=== PATIENT | female | born 1995 | race Caucasian/White ===

== ENCOUNTER 2020-07-02 10:23 | Outpatient (REF) | payer SELFPAY ==
[2020-07-03 15:43] LABS: COVID-19 RT-PCR UVMMC Result Negative (Negative)
== END 2020-07-02 10:24 | disposition home or self-care (01) ==
LOC: NCHCN 10:23
PROVIDERS: PCP Pediatrics; Visit Provider Internal Medicine
DX: Z20.822 Contact with and (suspected) exposure to COVID-19 (principal)
CPT/HCPCS: U0003

== ENCOUNTER 2023-07-11 05:25 | Outpatient (CLI) | payer MEDICAID, SELFPAY ==
[2023-07-11 10:16] LABS: Panorama Kit Sent via Fed Ex
[2023-07-11 10:25] LABS: Abs Immature Grans 0.04 10^3/uL (0.0-0.06); Absolute Basophil Count 0.01 10^3/uL (0.0-0.2); Absolute Eosinophil Count 0.21 10^3/uL (0.0-0.7); Absolute Lymphocyte Count 1.54 10^3/uL (1.2-3.4); Absolute Monocyte Count 0.54 10^3/uL (0.1-0.8); Absolute Neutrophil Count 4.09 10^3/uL (1.2-6.7); Basophils % 0.2; Eosinophils % 3.3; HCT 40.3 % (36.0-46.0); HGB 13.3 g/dL (11.2-15.7); Immature Grans % 0.6; MCV 88 fL (80-95); MPV 9.8 fL (8.0-11.0); Monocytes % 8.4; Neutrophils % 63.5; Platelet Count 259 10^3/uL (130-400); RBC 4.59 10^6/uL (3.93-5.22); RDW 13.4 % (11.7-14.6); WBC 6.43 10^3/uL (4.4-10.8)
[2023-07-11 10:35] LABS: Glucose,1 Hr (Glucola) 102 mg/dL (80-140)
[2023-07-11 18:12] LABS: Hepatitis B Surface Ag Negative (Negative)
[2023-07-11 18:40] LABS: HIV-1/2 Ag & Ab Screen Negative (Negative)
[2023-07-11 18:42] LABS: Hepatitis C Ab w Rflx HCV PCR Negative (Negative)
[2023-07-12 10:31] LABS: Varicella IgG Antibody Positive (See Note)
[2023-07-12 10:44] LABS: Rubella IgG Ab (UVM) Positive (See Note)
[2023-07-13 12:12] LABS: Syphilis IgG w/Reflex Nonreactive (Nonreactive)
[2023-07-28 02:47] LABS: Result Summary NEGATIVE; Specimen WB Whole Blood
== END 2023-07-11 05:26 | disposition home or self-care (01) ==
LOC: LBO 05:25
PROVIDERS: Visit Provider Advanced Practice Midwife
DX: Z34.91 Encounter for supervision of normal pregnancy, unspecified, first trimester (principal)
CPT/HCPCS: 36415; 81220; 81222; 82950; 86787; 86803; 86850; 86900; 86901; 87340; 87389; 85025; 86762; 86780

== ENCOUNTER 2023-07-11 10:21 | Outpatient (REF) | payer MEDICAID, SELFPAY ==
[2023-07-11 12:24] LABS: *AMPHETAMINES SCREEN URINE Negative (Negative); *BARBITURATES SCREEN URINE Negative (Negative); *BENZODIAZEPINES SCREEN URINE Negative (Negative); Cannabinoids THC Negative (Negative); Cocaine Screen,Urine Negative (Negative); METHADONE URINE SCREEN Negative (Negative); OPIATES URINE SCREEN Negative (Negative); Tricyclic Antidepressants Negative (Negative)
[2023-07-12 11:33] LABS: Fentanyl Scr w/Rfx Confirm Negative ng/mL (<1)
[2023-07-12 16:50] LABS: Chlamydia Result Negative (Negative); GC Result Negative (Negative)
[2023-07-15 10:08] LABS: Buprenorphine Negative ng/mL (Cutoff: 5.0); Norbuprenorphine Negative ng/mL (Cutoff: 2.5)
== END 2023-07-11 10:22 | disposition home or self-care (01) ==
LOC: LBN 10:21
PROVIDERS: Visit Provider Advanced Practice Midwife
DX: Z34.91 Encounter for supervision of normal pregnancy, unspecified, first trimester (principal)
CPT/HCPCS: 80307; 80348; 87491; 87591; 87086

== ENCOUNTER → 2023-09-06 04:21 | Outpatient (CLI) | payer MEDICAID, SELFPAY ==
--- NOTE | 2023-09-06 06:30 | DI.US_ITS ---
Exam(s) US OB 2-3 TRIMESTER W MOD EXAM: US OB 2-3 TRIMESTER W MOD CLINICAL HISTORY: anatomy survey,z34.90. TECHNIQUE: Transabdominal obstetrical ultrasound was performed. COMPARISON: No exams were available for comparison FINDINGS: There is a single viable intrauterine gestation with cardiac activity identified-153 bpm. Amniotic fluid: There is a normal amount of amniotic fluid. Placental location: The placenta is anterior grade 1,with no evidence of placenta previa.Distance fro m the tip of the placenta to the internal cervical os is 4.5 cm. ANATOMY: A 3 vessel umbilical cord is seen. Satisfactory imaging the heart not able to be obtained todayRight and left ventricular outflow tracts were not able to be imaged. There are no obvious abnormalities of the spinal column evident. There is no obvious abnormal ity of the anterior abdominal wall. stomach and urinary bladder are identified and there is no evidence of hydronephrosis. No abnormalities of the upper lip region are identified. No evidence of choroid plexus cysts i n the brain. Dating parameters place this at approximately 19 weeks and 4 days gestational age. BPD measures 19 weeks and 4 days HC measures 19 weeks and 5 days AC measures 19 weeks and 5 days FL measures weeks and 3 days Estimated weight is 301 gm-0 pounds, 11 ounces Fetus is at the 46th percentile on the Hadlock scale. IMPRESSION:: Single viable intrauterine gestation which is approximately 19 weeks and 4 days gestati onal age, implying an INDIGO of 01/27/2024. There are no obvious anomalies evident on today's study. However, please note that were not abl e to obtain satisfactory imaging of the heart on today's study and requires rescheduling 4 additional imaging of the heart to obtained four-chamber cardiac view as well as left and rig ht ventricular outflow tract views. The placenta is anterior with no evidence of placenta previa. There is a normal amount of amniotic fluid. DATA REPOSITORY:
== END ==
PROVIDERS: Visit Provider Advanced Practice Midwife
DX: Z34.92 Encounter for supervision of normal pregnancy, unspecified, second trimester (principal); Z3A.19 19 weeks gestation of pregnancy
CPT/HCPCS: 76805

== ENCOUNTER → 2023-09-13 04:19 | Outpatient (CLI) | payer MEDICAID, SELFPAY ==
--- NOTE | 2023-09-13 | DI.US_ITS ---
Exam(s) US OB F/U FACIAL/LVOT/RVOT EXAM: US OB F/U FACIAL/LVOT/RVOT CLINICAL HISTORY: F/U HEART,PLACENTA,CORD INSERTS FROM SURVEY. COMPARISON: US US OB 2-3 TRIMESTER W MOD from 09/06/2023 TECHNIQUE: Transabdominal obstetrical ultrasound performed. FINDINGS: Sonographic images demonstrate a single intrauterine gestation in transverse position, head tow genoveva the maternal left. heart rate motion is Dopplered at: 145 bpm. Four-chamber view of the heart, LVOT and RVOT were better seen on today's exam no abnormalities ident ified. Placenta: Anterior, grade 0.. Cord insertion 3.7 cm from the placental margin. cord insertion appears normal. Amniotic fluid index: Amount of fluid is within normal limits. IMPRESSION: Images of the heart are adequate on today's examination to complete the survey. DATA REPOSITORY:
== END ==
PROVIDERS: Visit Provider Advanced Practice Midwife
DX: Z34.02 Encounter for supervision of normal first pregnancy, second trimester (principal); Z3A.19 19 weeks gestation of pregnancy
CPT/HCPCS: 76815

== ENCOUNTER 2023-11-03 01:03 | Outpatient (CLI) | payer MEDICAID, SELFPAY ==
[2023-11-03 11:10] LABS: HCT 37.9 % (36.0-46.0); HGB 12.8 g/dL (11.2-15.7); MCH 29.8 pg (27.0-33.0); MCHC 33.8 % (32.0-36.0); MCV 88 fL (80-95); MPV 9.5 fL (8.0-11.0); Platelet Count 249 10^3/uL (130-400); RBC 4.29 10^6/uL (3.93-5.22); RDW 13.9 % (11.7-14.6); RDW-SD 44.8 fL; WBC 7.21 10^3/uL (4.4-10.8)
[2023-11-03 11:26] LABS: Glucose,1 Hr (Glucola) 121 mg/dL (80-140)
== END 2023-11-03 01:04 | disposition home or self-care (01) ==
LOC: LBO 01:03
PROVIDERS: Visit Provider Advanced Practice Midwife
DX: Z34.90 Encounter for supervision of normal pregnancy, unspecified, unspecified trimester (principal)
CPT/HCPCS: 36415; 82950; 85027

== ENCOUNTER 2023-11-03 13:53 | Outpatient (REF) | payer MEDICAID, SELFPAY ==
[2023-11-03 14:15] LABS: *AMPHETAMINES SCREEN URINE Negative (Negative); *BARBITURATES SCREEN URINE Negative (Negative); *BENZODIAZEPINES SCREEN URINE Negative (Negative); Cannabinoids THC Negative (Negative); Cocaine Screen,Urine Negative (Negative); METHADONE URINE SCREEN Negative (Negative); OPIATES URINE SCREEN Negative (Negative)
[2023-11-03 14:16] LABS: Tricyclic Antidepressants Negative (Negative)
[2023-11-04 12:25] LABS: Fentanyl Scr w/Rfx Confirm Negative ng/mL (<1)
[2023-11-09 08:04] LABS: Buprenorphine Negative ng/mL (Cutoff: 5.0); Norbuprenorphine Negative ng/mL (Cutoff: 2.5)
== END 2023-11-03 13:54 | disposition home or self-care (01) ==
LOC: LBN 13:53
PROVIDERS: Visit Provider Advanced Practice Midwife
DX: Z34.92 Encounter for supervision of normal pregnancy, unspecified, second trimester (principal)
CPT/HCPCS: 80307; 80348

== ENCOUNTER 2024-01-02 16:15 | Outpatient (REF) | payer MEDICAID, SELFPAY | END 2024-01-02 16:16 | disposition home or self-care (01) | LOC: LBN 16:15 | PROVIDERS: Visit Provider Advanced Practice Midwife | DX: Z34.93 Encounter for supervision of normal pregnancy, unspecified, third trimester (principal); Z3A.36 36 weeks gestation of pregnancy | CPT/HCPCS: 87081 ==

== ENCOUNTER 2024-01-17 13:06 | Outpatient (CLI) | payer MEDICAID, SELFPAY ==
[2024-01-17 13:13] VITALS: BP 130/74; PULSE 118; TEMP 36.4
[2024-01-17 13:20] VITALS: BP 130/74; PULSE 118
--- NOTE | 2024-01-17 14:42 | W.OBNST ---
Date of service: 01/17/24 Time of Service: 14:42 NST Evaluation Reason for NST Reasons for Nonstress Test: OTHER, SEE COMMENT Reason for NST Other: Decreased heart rate Gestational Age Gestational Age in Weeks and Days: 38 Weeks and 4Days Test and Monitor Explained Test/Monitor Explained: Test Explained and Monitor Explained Vital Signs Blood Pressure: 130/74 Pulse: 118 Temperature: 97.5 F Urine Results Urine Protein: Negative Urine Ketones: Negative Urine Glucose: Negative Urine Blood: Negative NST Information Date on Monitor: 01/17/24 Time on Monitor: 13:16 Date off Monitor: 01/17/24 Time off Monitor: 13:40 Total Time on Monitor: 24 NST Interventions: None NST Evaluation Patient States Movement: Present FHR Baseline: 130 Variability: Moderate 6-25 bpm Accelerations: 15x15 Decelerations: None NST Results: Reactive Note Ultrasound Done: N/A. NST Note Note: FHR 110-130 in office. NST reactive. RTO 1 week NST Reviewed and Verified by: Leigh Calderon
[2024-01-17 14:43] VITALS: BP 130/74; PULSE 118; TEMP 36.4
== END 2024-01-17 13:40 ==
LOC: BCD 13:07 → OBS 13:12
PROVIDERS: Visit Provider Advanced Practice Midwife
DX: O36.8310 Maternal care for abnormalities of the fetal heart rate or rhythm, first trimester, not applicable or unspecified (principal); Z3A.38 38 weeks gestation of pregnancy
CPT/HCPCS: 59025

== ENCOUNTER 2024-02-03 07:35 | Outpatient (CLI) | payer MEDICAID, SELFPAY ==
[2024-02-03 10:16] VITALS: TEMP 36.8
--- NOTE | 2024-02-03 13:15 | W.OBNST ---
Date of service: 02/03/24 Time of Service: 13:15 NST Evaluation Reason for NST Reasons for Nonstress Test: POSTDATES Gestational Age Gestational Age in Weeks and Days: 41 Weeks and 0Days Test and Monitor Explained Test/Monitor Explained: Test Explained Vital Signs Temperature: 98.2 F NST Information Date on Monitor: 02/03/24 Time on Monitor: 10:05 Date off Monitor: 02/03/24 Time off Monitor: 12:20 Total Time on Monitor: 135 NST Interventions: None NST Evaluation Patient States Movement: Present FHR Baseline: 140 Variability: Moderate 6-25 bpm Accelerations: 15x15 Decelerations: None NST Results: Reactive Note Ultrasound Done: DAYAN Total DAYAN: 9.8 Other Pertinent Findings: Heart Rate (140), Presentation (cephalic, ROP) and Placental Location (anterior) Coding for DAYAN w/NST: Completed Exam. NST Note Note: Pt scheduled for 41 wk IOL on 02/05 Cvx 1/60%, anterior, firm, vtx -4 intact membranes NST Reviewed and Verified by: Zeina Anders
[2024-02-03 13:17] VITALS: TEMP 36.8
== END 2024-02-03 12:30 | disposition other institution (70) ==
LOC: BCD 07:35 → OBS 10:14
PROVIDERS: Visit Provider Advanced Practice Midwife
DX: O48.0 Post-term pregnancy (principal); Z3A.41 41 weeks gestation of pregnancy
CPT/HCPCS: 59025; 76815

== ENCOUNTER 2024-02-06 08:06 | Inpatient (IN) | payer MEDICAID, SELFPAY ==
[2024-02-06 08:44] LABS: HCT 38.7 % (36.0-46.0); HGB 13.1 g/dL (11.2-15.7); MCH 29.8 pg (27.0-33.0); MCHC 33.9 % (32.0-36.0); MCV 88 fL (80-95); MPV 9.6 fL (8.0-11.0); Platelet Count 256 10^3/uL (130-400); RBC 4.39 10^6/uL (3.93-5.22); RDW 14.4 % (11.7-14.6); RDW-SD 45.7 fL
[2024-02-06 08:47] VITALS: BP 136/80; PULSE 108; RESP 16; TEMP 36.5; O2SAT 99
[2024-02-06] MEDS: miSOPROStol 25 MCG TAB 50 MCG PO ×3 (09:15→20:13)
--- NOTE | 2024-02-06 09:47 | HPE_ITS ---
Date of service: 02/06/24 Time of Service: 09:00 Assessment and Plan Assessment and plan (1) 41 weeks gestation of : Status: Acute (2) resulting from in-vitro fertilization: Status: Acute (3) Encounter for induction of labor: Status: Acute Assessment and plan: A: 28 yo @ 41+3 wks, IOL for post dates & IVF DAYAN @ 41 wks = 10, Sherman score is 5 Category 1 tracing, moderate risks for SD and PPH due IOL process & primiparity Valtrex taken for HSV prophylaxis, no lesions or sx P: Risks and benefits of IOL reviewed, will begin with cervical ripening Admit to center, comfort measures as pt desires Dr. Garza available for consultation OB-HPI Labor/Delivery History of Present Illness Reason for Visit: Postdates induction Chief Complaint: Scheduled Induction of Labor Indication for Induction: Post Date. INDIGO Calculator Estimated Delivery Date Method Current WG Current Estimate 01/27/24 Ultrasound #1 41w 3d History of Present Expected Delivery Route/Plan - CNM FOB/ - Vicente Graves (has a 6 yo son) BG Hopes for low intervention but open to what she may need support=FOB and pt's mom and/or [id number] ([place] [facility] GBS negative Specific Issues/Plan 1. IVF , finished progesterone injections @ 10 wks 2. Low dose ASA for nulliparity, BMI & IVF 3. BMI 31, early glucola = 102; 28 wks = 121 4. 5P screen+ (partner MAT for opiate use, stopped 2021): UDS initial (neg) & 28 wks neg 5. Hx genital HSV, plan Valtrex prophylaxis from 36 wks- ordered 12/18 6. Hx childhood PCN-hives, pt desires allergy testing, [facility] [place] referral 11/20 6a. Had skin testing [place] [facility] [place] had no reaction, low risk for PCN reaction 7. cfDNA low risk x5 female, CF carrier negative 8. Received RSV vaccine 01/02 Assessment: History Reviewed & Current Informed Consent Informed Consent: Induction of Labor and Risk,Benefits,Alternatives Discussed Review of Systems Narrative: ROS completed and found to be noncontributory other than HPI PFSH All Active Problems (Updated 02/06/24 @ 17:10 by Zeina Anders) Encounter for induction of labor (Acute) 41 weeks gestation of (Acute) Family history of hypertension (Acute) both of pt's parents and her brother Penicillin-induced allergic rash (Acute) In childhood, no recent exposure History of herpes genitalis (Acute) (Acute) resulting from in-vitro fertilization (Acute) fresh embryo transfer 05/11/23 Medical History (Updated 02/06/24 @ 17:10 by Zeina Anders) Infertility, female Recurrent loss, currently History of hysterosalpingogram 03/2023 Breakthrough bleeding (09/15/15) Family History Mother Vulvar cancer Father Heart disease Grandfather Diabetes MGF Social History Smoking/Tobacco Use Status: Never Smoking risk assessment performed?: Yes Alcohol Intake: never Housing: house Do you feel safe at home: Yes Do you feel safe in your relationship?: Yes History History 4 Para 0 Hx # Term Pregnancies 0 Multiple births 0 Hx # Pregnancies 0 Ectopic pregnancies 0 AB induced 1 Hx Number of Living Children 0 AB spontaneous 2 Meds Allergies and Home Medications Allergies Allergy/AdvReac Type Severity Reaction Status Date / Time Penicillins Allergy Unknown Other (See Verified 01/30/24 11:37 Comment) Home Medications ?Medication ?Instructions ?Recorded ?Confirmed ?Type aspirin 81 mg tablet,delayed 81 mg PO DAILY #90 tabs 07/11/23 02/06/24 Rx release vitamin#30 30 mg iron-10 1 cap PO DAILY 07/11/23 02/06/24 History mg iron-folic acid 1 mg-omg3 capsule valacyclovir 1 gram tablet 1,000 mg PO DAILY #30 tabs 12/19/23 02/06/24 Rx (Valtrex) Exam Physical Exam Vital signs: Temp Pulse Resp BP Pulse Ox 97.7 F 108 H 16 136/80 99 02/06/24 08:47 02/06/24 08:47 02/06/24 08:47 02/06/24 08:47 02/06/24 08:47 Vital Signs Reviewed: Yes Constitutional Constitutional: no acute distress, average body habitus and cooperative Detailed Labor and Delivery Exam Dilation: 1 Effacement (%): 60 station: -3 Position: ROP Cervix position: anterior Consistency: medium SHERMAN Score(Cervical Ripeness Score): 5 Amniotic Membrane Status: Intact Contraction Frequency(min): irregular Contraction Intensity: Mild Fetus A Heart Rate Baseline: 140 Monitor Accelerations: Present Monitor Decelerations: None Variability: Moderate (6-25 BPM) Categories: Category I Est. Weight: 8 lb 11.332 oz Est. Weight: 3950 gms HEENT Exam HEENT Exam: Normal Neck Exam Neck Exam: Normal Chest/Brest/Axilla Exam Chest Exam: Normal Breast Exam Breast Exam: Not Done Respiratory Exam Respiratory Exam: Normal Cardiovascular Exam Cardiovascular Exam: Normal Abdominal Exam Abdominal Exam: Normal (Gravid, nontender) Rectal Exam Rectal Exam: Normal Exam Exam: Normal Extremities Exam Extremities Exam: Normal Back/Spine/Pelvis Exam Back Exam: Normal Pelvis Adequate: Yes Skin Exam Skin Exam: Normal Neurological Exam Neurological Exam: Normal Psychiatric Exam Psychiatric Exam: Normal Results Results Group Beta Strep: Negative Blood Type: O+ Rubella Status: Immune Varicella Immunity: Immune Risk Assessment Risk for Shoulder Dystocia Historical/Initial OB: POSITIVE FOR: Pre- BMI>30; NEGATIVE FOR: Pelvic Abnormality, Previous Shoulder Dystocia or Previous Macrosomia 36 Weeks: NEGATIVE FOR: Current Gestational DM, EFW>4500gms or Maternal Weight Gain>40lbs 40 Weeks: NEGATIVE FOR: EFW> 4500 gms, Maternal Weight Gain >40lb or Post Dates Increased Risk?: No Delivery Plan @ 36wks: Delivery Plan @ 40 wks: Risk for Pre-Eclampsia Date Initiated/Initials: to start @ 12 wks, JK Yes, if one or more: NEGATIVE FOR: Hx Pre-E/Gest HTN, Chronic HTN, Multiple Gestation, Pre-gestational DM, Renal Disease, Systemic Lupus or APA Syndrome Yes, if 2 or more: POSITIVE FOR: Nulliparity and BMI>30; NEGATIVE FOR: Age>= 35 yrs, >10yr btwn pregnancies, ethinicty, Mother/Sister w/ Pre-E or Previous IUGR Risk for Post- Hemorrhage Initial: NEGATIVE FOR: Multiple Gestation, Previous PPH, Known Clotting Deficiency, Grand Multiparity or Anticoagulation 36 Weeks: NEGATIVE FOR: Anemia, hgb<10, Low platelets(thrombocytopenia), Gestational HTN or Pre-E, Polyhydraminios or EFW>4500gms 40 Weeks: NEGATIVE FOR: Anemia, hgb<10, Low platelets (thrombocytopenia), Gestation HTN or Pre-E, Polyhydraminios or EFW>4500gms At Risk?: No Counseled re: Active Management: Yes Risks Reviewed Risks Reviewed Upon Admission: Yes
[2024-02-06 11:18] VITALS: BP 134/65; PULSE 104
[2024-02-06 13:05] VITALS: BP 129/67; PULSE 88; RESP 16; TEMP 36.6
[2024-02-06 17:32] VITALS: BP 128/76; PULSE 98
[2024-02-06 19:04] VITALS: BP 133/75; PULSE 100; TEMP 36.7
--- NOTE | 2024-02-06 19:53 | W.PM.OBNL1 ---
Date of service: 02/06/24 Time of Service: 19:53 Informed Consent Informed Consent: Induction of Labor and Risk,Benefits,Alternatives Discussed Pelvic Exam Dilation: 1 Effacement (%): 70 station: -3 Position: ROP Cervix Position: anterior Consistency: medium BISHOPS Score(Cervical Ripeness Score): 5 Contractions Monitor Mode: External Contraction Frequency(min): 4-5 Contraction Duration(sec): 50-60 Intensity: Mild Fetus A Monitor: External (US) Heart Rate Baseline: 150 Variability: Moderate (6-25 BPM) Categories: Category I Accelerations: Prolonged (with movement) Decelerations: None Amniotic Membrane Status: Intact Assessment and Plan Assessment and plan (1) Encounter for induction of labor: Status: Acute Assessment and plan: A: IOL via cervical ripening, HD#1, s/p 2 doses of miso 50 mcg PO Category 1 tracing, Alvarez score of 5, latent phase P: Continue miso q 4 -6 hrs PO for 2 more doses Use oral route for hydration as pt is tolerating well Consider pitocin infusion in the morning if labor not active Objective Temp Pulse Resp BP Pulse Ox 97.9 F 100 H 16 133/75 99 02/06/24 13:05 02/06/24 19:04 02/06/24 13:05 02/06/24 19:04 02/06/24 08:47 Laboratory Results WBC 8.00 10^3/uL (4.4-10.8) 02/06/24 08:35 RBC 4.39 10^6/uL (3.93-5.22) 02/06/24 08:35 Hgb 13.1 g/dL (11.2-15.7) 02/06/24 08:35 Hct 38.7 % (36.0-46.0) 02/06/24 08:35 MCV 88 fL (80-95) 02/06/24 08:35 MCH 29.8 pg (27.0-33.0) 02/06/24 08:35 MCHC 33.9 % (32.0-36.0) 02/06/24 08:35 RDW 14.4 % (11.7-14.6) 02/06/24 08:35 Plt Count 256 10^3/uL (130-400) 02/06/24 08:35 MPV 9.6 fL (8.0-11.0) 02/06/24 08:35 ABO/Rh O Positive 02/06/24 08:35 Antibody Screen NEGATIVE 02/06/24 08:35 Vital Signs Reviewed: Yes Objective Narrative Objective Narrative: Pt appears comfortable, socializing and relaxed Vital signs stable, category 1 tracing all day Nursing held 1730 miso dose due to contractions q 3 minutes EFM reapplied at 1900, contx are 2-3 in 10 minutes, fetus very active with prolonged accels to 170 Nursing continuing to hold 3rd miso dose until baseline returns to 150's Pt resting LLP watching TV with Subjective Interval history since last seen: Pt has been feeling increased lower abd cramping most the afternoon and evening, baby very active since finishing dinner, tolerating PO intake well, relaxing with visitors and .
[2024-02-06 21:14] VITALS: BP 117/61; PULSE 72; TEMP 36.6
[2024-02-07] VITALS (32 sets, daily range): BP systolic 111–141; BP diastolic 55–83; PULSE 79–122; RESP 16–17; TEMP 36.4–36.9; O2SAT 93–100
[2024-02-07] MEDS: miSOPROStol 25 MCG TAB 50 MCG PO (00:33)
--- NOTE | 2024-02-07 11:20 | PGE_ITS ---
Date of service: 02/07/24 Time of Service: 11:20 Informed Consent Informed Consent: Induction of Labor, Risk,Benefits,Alternatives Discussed and Other (consents to clemente balloon) Pelvic Exam Dilation: 1.5 Effacement (%): 90 station: -3 Position: ROP Cervix Position: anterior Consistency: medium BISHOPS Score(Cervical Ripeness Score): 5 Contractions Monitor Mode: External Contraction Frequency(min): q3-4 Intensity: Mild/Moderate Fetus A Monitor: External (US) Heart Rate Baseline: 145 Variability: Moderate (6-25 BPM) Categories: Category I Accelerations: 15 X 15 Decelerations: None Amniotic Membrane Status: Intact Assessment and Plan Assessment and plan (1) Encounter for induction of labor: Status: Acute Assessment and plan: A: IOL for postdates/IVF, HD#2, completed total of 200 mcg miso over 24 hrs Mild contractions, category 1 tracing, early labor sx, P: Irina Kingsley consulting and introduced to pt and family Detailed discussion of next step options Pt consents to clemente balloon, inserted easily Will check for progress @ 1300, consider pitocin if indicated Pt declines regional anesthesia at this time, nitrous is adequate for now Encourage upright positioning & activity out of bed for rotation/descent Objective Objective Narrative Objective Narrative: Options for analgesia reviewed with pt Advised pt that though she feels tired and got little sleep last night, narcotic therapeutic rest is not indicated at this time Explained that IOL requires using techniques & meds for increasingly strong co ntractions to achieve labor and delivery Suggested to pt that she move around or rest, may use tub with clemente balloon in place When contractions are too strong to rest then regional anesthesia may be appropriate for her to be able to sleep/rest Subjective Interval history since last seen: Using nitrous to cope with uncomfortable contractions, pain in lower abd, has been using nitrous on and off since 0100 this morning after receiving 4th miso dose. Was able to sleep from 0400 to 0600, showered, tolerating PO intake well. Sister and FOB at bedside for support. Pt does not want regional anesthesia at this time, states the nitrous is adequate, wants to know what other pain management options are such as narcotic for therapeutic rest or fentanyl or nubain for later in labor. Declines pitocin augmentation at this time, consents to clemente balloon to push cervix to dilate as there has been minimal cervical change in response to misoprostel.
--- NOTE | 2024-02-07 15:54 | W.PM.OBNL1 ---
Date of service: 02/07/24 Time of Service: 15:54 Informed Consent Informed Consent: Augmentation of Labor and Risk,Benefits,Alternatives Discussed Pelvic Exam Dilation: 5 Effacement (%): 95 station: -2 Cervix Position: mid Consistency: soft Contractions Monitor Mode: External Contraction Frequency(min): q4-5 Intensity: Mild/Moderate Fetus A Monitor: External (US) Heart Rate Baseline: 140 Variability: Moderate (6-25 BPM) Categories: Category I Accelerations: 15 X 15 Decelerations: None Amniotic Membrane Status: Intact (forebag present during contraction) Assessment and Plan Assessment and plan (1) Encounter for induction of labor: Status: Acute Assessment and plan: A: Progress to 5/95%, forebag palpable during contraction Discussed pitocin augmentation vs AROM, pt prefers pitocin at this time P: Start pitocin augmentation Comfort measures as pt desires Dr. Arevalo notified of pt status Objective Vital Signs Reviewed: Yes Subjective Interval history since last seen: Pt requesting vaginal exam and consents to pitocin augmentation. Using nitrous to good effect.
[2024-02-07] MEDS: Oxytocin/Normal Saline 30 UNIT/500 ML BAG 2 UNITS IV (16:29)
[2024-02-07] MEDS: Lactated Ringers 1,000 ML 125 ML IV (16:29)
[2024-02-07] MEDS: Normal Saline Flush 10 ML SYR IVP (16:38)
--- NOTE | 2024-02-07 19:28 | W.PM.OBNL1 ---
Date of service: 02/07/24 Time of Service: 19:28 Informed Consent Informed Consent: Augmentation of Labor, Risk,Benefits,Alternatives Discussed and Other (Pt consents to AROM) Pelvic Exam Dilation: 5 Effacement (%): 95 station: -2 Position: ROP Cervix Position: anterior Consistency: soft Contractions Monitor Mode: External Contraction Frequency(min): q2-4 Intensity: Moderate Fetus A Monitor: External (US) Heart Rate Baseline: 145 Variability: Moderate (6-25 BPM) Categories: Category I Accelerations: Present Decelerations: None Amniotic Membrane Status: Ruptured Rupture Method: Artifical Amniotic Fluid: Meconium Amount: moderate Date of Membrane Rupture: 02/07/24 Time of Membrane Rupture: 19:25 Assessment and Plan Assessment and plan (1) Encounter for induction of labor: Status: Acute Assessment and plan: A: No cervical change since pitocin initiated 3 hrs ago, Pitocin @ 10 u/min, inadequate contraction pattern Category 1 tracing P: AROM consented to, easily performed, +meconium well diluted Comfort measures as pt desires Observe for labor progression, consider IUPC if not progressing by next exam Dr. Arevalo notified of pt status Objective Vital Signs Reviewed: Yes Objective Narrative Objective Narrative: Pt calm, coping well, using nitrous and changing positions often Subjective Interval history since last seen: Contractions feel stronger, no vomiting or bleeding, has continued to use nitrous and moving around the room, trying various positions to encourage optimal positioning, consents to AROM.
--- NOTE | 2024-02-07 22:14 | W.PM.OBNL1 ---
Date of service: 02/07/24 Time of Service: 22:14 Informed Consent Informed Consent: Augmentation of Labor, Regional Anesthesia, Risk,Benefits,Alternatives Discussed and Other (IUPC placement) Pelvic Exam Dilation: 5.5 Effacement (%): 100 station: -2 Position: ROP Consistency: soft Contractions Monitor Mode: Internal IUPC Fred units: 160 Fetus A Monitor: External (US) Heart Rate Baseline: 135 Variability: Moderate (6-25 BPM) Categories: Category I Accelerations: Present Decelerations: Early Amniotic Membrane Status: Ruptured Amniotic Fluid: Meconium Assessment and Plan Assessment and plan (1) Encounter for induction of labor: Status: Acute Assessment and plan: A: No cervical change since AROM 2 hrs earlier Pitocin at 14 u/min; pt consents to IUPC placement IUPC inserted atraumatically, pt requesting epidural anesthesia Category 1 tracing P: Dr. Irina Yates aware of pt status Titrate pitocin for adequate labor per MVU's Objective Vital Signs Reviewed: Yes Subjective Interval history since last seen: Contractions much more painful since AROM, soaked in tub for an hour, then H&K on floor mat using CUB and lunge position with left leg, agreed to exam to check for progress, consent given by pt for IUPC placement.
--- NOTE | 2024-02-07 23:14 | W.ANESNEU ---
Epidural/Spinal Catheter Date Performed: 02/07/24 Procedure Start: 10:45 Procedure Stop: 23:00 Requesting Provider: Zeina Anders Procedure Location: Obstetrics Reason Performed: Labor Epidural Standard Monitors Applied: Blood Pressure, SpO2 and See EMR for corresponding vital signs Patient Position: Sitting Sedation Given (Indicate Dose Given): No Sedation given Patient Mental Status: Awake Sterility: Hand Hygiene, Surgical Cap, Surgical Mask, Sterile Gloves, Sterile Drape/Sheet, Eye Protection and Chlorhexidine Procedure Location: L3-L4 Interspace Epidural Needle: Tuohy 18 Gauge Needle Length: 3.5 Inch Needle Approach: Midline Epidural Procedure: Skin Prepped, Sterile Drape Placed, 1% Lidocaine to skin and subcutaneous tissue with 25G needle, GAIL to Saline Used, Epidural Catheter Placed, Negative Heme, Negative CSF Flow and Tuohy Needle Removed Catheter Placed?: Catheter Placed Test Dose (Indicate Dose Given): 5ml 1.5% Lidocaine with 1:200K Epinephrine Given and Negative Test Dose Loss of Resistance Depth (cm): 7 Catheter depth at skin (cm): 13 Dressing: Tegaderm Applied, Mastisol Used and Dressing reinforced with Tape Epidural Provider Bolus (Indicate Dose Given): Total bolus dose given in 3-5 ml divided doses and Total Ropivacaine 0.1% with Fentanyl 2mcg/ml Given from pump. (ml) Dose:: 8ml Additives (Indicate Dose Given ): None Infusion Medication: Medication Infusion Began Medication Infusion: Ropivacaine 0.1% with Fentanyl 2mcg/ml Maintenance Infusion Rate (ml/hour): 10 PCEA Bolus Dose (ml): 5 Block Level: T7 Paresthesia: None Ultrasound: Used to helena site Number of Attempts (See previous attempts in note section): 1 Procedure Tolerated: No Complications and Patient tolerated well Procedure Outcome: Successful Performed By: Antonio Hamilton Supervised By: Yared Esparza
[2024-02-07] MEDS: FentaNYL/ROPIvacaine 2 mcg/ml and 0.1% 200 ML CADD Cassette EP (23:15)
[2024-02-08] VITALS (183 sets, daily range): BP systolic 90–129; BP diastolic 48–77; PULSE 79–152; RESP 16–18; TEMP 36.2–37; O2SAT 97–100; BMI 33.7
--- NOTE | 2024-02-08 00:41 | ANES.PREOP_ITS ---
General Info Date of Service Date Performed: 02/07/24 Height: 5 ft 6 in Weight: 94.801 kg Body Mass Index (BMI): 33.7 Meds Allergies and Home Medications Allergies Allergy/AdvReac Type Severity Reaction Status Date / Time Penicillins Allergy Unknown Other (See Verified 01/30/24 11:37 Comment) Home Medication ?Medication ?Instructions ?Recorded aspirin 81 mg tablet,delayed 81 mg PO DAILY #90 tabs 07/11/23 release vitamin#30 30 mg iron-10 1 cap PO DAILY 07/11/23 mg iron-folic acid 1 mg-omg3 capsule valacyclovir 1 gram tablet 1,000 mg PO DAILY #30 tabs 12/19/23 (Valtrex) Current Visit Medications: Current Medications Generic Name Dose Route Start Last Admin Trade Name Freq PRN Reason Stop Dose Admin Diphenhydramine HCl 25 mg 02/07/24 23:15 Diphenhydramine 50 Mg/Ml Vial IVP Q6H PRN PRN Persistent pruritis face/trunk Ephedrine Sulfate 5 mg 02/07/24 23:15 Ephedrine 50 Mg/Ml Vial IVP DIRECTED PRN Fentanyl/Ropivacaine 200 ml 02/07/24 22:30 Fentanyl/Ropivacaine 2 Mcg/Ml And 0.1% 200 Ml [place] EP DIRECTED PALOMO Fentanyl/Ropivacaine 200 ml 02/07/24 23:15 Fentanyl/Ropivacaine 2 Mcg/Ml And 0.1% 200 Ml [place] EP DIRECTED PALOMO Ringer's Solution 1,000 mls @ 125 mls/hr 02/07/24 10:30 02/07/24 16:29 IV 125 mls/hr INFUSION PALOMO Administration Oxytocin/Sodium Chloride 30 unit in 500 mls @ 2 mls/hr 02/07/24 10:30 02/07/24 18:26 Pitocin/Normal Saline IV 10 milliunits/min INFUSION PALOMO 10 mls/hr Titration Protocol 2 MILLIUNITS/MIN Naloxone HCl 2 mg/ Sodium 500 mls @ 11.85 mls/hr 02/07/24 23:15 Chloride IV INFUSION PRN pruritis 0.5 MCG/KG/HR Nalbuphine HCl 5 mg/ Sodium 50.5 mls @ 100 mls/hr 02/07/24 23:15 Chloride IVPB Q3H PRN PRN Pruritis IV Miscellaneous Supplies 1 each 02/07/24 10:30 Iv Access IV DIRECTED PALOMO Naloxone HCl 0 mg 02/07/24 23:15 Naloxone 0.4 Mg/Ml Vial IVP DIRECTED PRN Ondansetron HCl 4 mg 02/07/24 23:15 Ondansetron 4 Mg/2 Ml Vial IVP Q6H PRN PRN Nausea Sodium Chloride 0 ml 02/07/24 10:19 02/07/24 16:38 Normal Saline Flush 10 Ml Syr IVP 10 ml PRN PRN Administration Sodium Chloride 0 ml 02/07/24 20:00 Normal Saline Flush 10 Ml Syr IVP BID PALOMO Sodium Chloride 0 ml 02/07/24 10:19 Normal Saline 10 Ml Vial IJ DIRECTED PRN Terbutaline Sulfate 0.25 mg 02/06/24 08:05 Terbutaline 1 Mg/Ml Vial SC PRN PRN PFSH Active Problems Active Problems: Problem Status Onset Code Encounter for induction of labor Acute Z34.90 41 weeks gestation of Acute O48.0, Z3A.41 Penicillin-induced allergic rash Acute L27.0, T36.0X5A History of herpes genitalis Acute Z86.19 Acute Z34.90 resulting from in-vitro fertilization Acute O09.819 Medical History Medical History (Updated 02/08/24 @ 00:18 by Zeina Anders) Family history of hypertension both of pt's parents and her brother Infertility, female Recurrent loss, currently History of hysterosalpingogram 03/2023 Breakthrough bleeding (09/15/15) Tobacco Smoking/Tobacco Use Status: Never Alcohol Alcohol Intake: never Substance Use Substance use type: does not use Prental History History 2 4 Para 0 Hx # Term Pregnancies 0 Multiple births 0 Hx # Pregnancies 0 Ectopic pregnancies 0 AB induced 1 Hx Number of Living Children 0 AB spontaneous 2 Vital Signs and Lab Results Vital Signs Most Recent Vital Signs in EMR: Most Recent Vital Signs Temp Pulse Resp BP Pulse Ox 36.9 C 95 H 16 119/70 99 02/07/24 17:38 02/08/24 00:39 02/07/24 23:15 02/08/24 00:36 02/08/24 00:39 Lab Results 02/06/24 08:35 Blood Type / Crossmatch: 2 Antibody Screen NEGATIVE 02/06/24 Complete Blood Count: 2 White Blood Count 8.00 10^3/uL (4.4-10.8) 02/06/24 08:35 Red Blood Count 4.39 10^6/uL (3.93-5.22) 02/06/24 08:35 Hemoglobin 13.1 g/dL (11.2-15.7) 02/06/24 08:35 Hematocrit 38.7 % (36.0-46.0) 02/06/24 08:35 Platelet Count 256 10^3/uL (130-400) 02/06/24 08:35 Complete Metabolic Panel: 2 No Data to Display Liver Function Panel: 2 No Data to Display Coagulation Panel: 2 No Data to Display Cardiac Panel: 2 No Data to Display Arterial Blood Gas: 2 No Data to Display Venous Blood Gas: 2 No Data to Display Pancreas Panel: 2 No Data to Display Thyroid Panel: 2 No Data to Display Infectious Disease: 2 No Data to Display Blood Cultures: 2 No Data to Display Toxicology Panel: 2 No Data to Display Panel: 2 No Data to Display Anesthesia Assessment and Plan Anesthesia History Personal History: No History of Anesthesia Complications Family History: No Family History of Anesthesia Complications Exercise Tolerance Exercise Tolerance: Metabolic Equivalents>4 Pertinent Negatives Pertinent Negatives: No Symptoms of GERD, No Major Cardiovascular Symptoms or Complaints, No Major Pulmonary Symptoms or Complaints and No History of CVA/TIA Cardiac & Pulmonary Exam Cardiac Exam: Normal S1/S2 Heart Sounds Pulmonary Exam: Clear Bilateral Breath Sounds Implantable Cardiac Device Does patient have a Pacemaker or an ICD?: No Airway Exam Known Difficult Airway: No Mallampati Class: 2 Mouth Opening: Normal (> 3cm) Thyromental Distance: Greater than 3 cm Neck Range of Motion: Full ROM Neck Circumference: Normal Teeth Condition: Normal Dentition ASA Classification ASA Score: ASA 2 Emergency Case?: No NPO Status NPO Status: Full Stomach Status Status: Confirmed Anesthesia Plan Resuscitation Status: Full Code Anesthesia Technique: Labor Epidural Airway Planned: Natural Airway Monitors Used: Standard Monitors Preoperative Comments:: Miss Akers is a G4PO 41+ 3 weeks gestation requesting labor epidural significant PMH: recurrent loss Plan: labor epidural placement, appropriate monitors, adequate IV access
--- NOTE | 2024-02-08 02:02 | W.PM.OBNL1 ---
Date of service: 02/08/24 Time of Service: 01:10 Informed Consent Informed Consent: Augmentation of Labor, Regional Anesthesia, Risk,Benefits,Alternatives Discussed and Other (IUPC placement) Pelvic Exam Dilation: 8 (per RN exam) station: 0 (per RN exam) Contractions Monitor Mode: Internal IUPC Fred units: 190 Fetus A Monitor: External (US) Heart Rate Baseline: 150 Variability: Moderate (6-25 BPM) Categories: Category II CategoryII Plan of Care: Observation and Continuous Monitoring/Observation Decelerations: Early and Variable Recurrence: Recurrent (elisabeth 120) Amniotic Membrane Status: Ruptured Rupture Method: Artifical Amniotic Fluid: Meconium Assessment and Plan Assessment and plan (1) Encounter for induction of labor: Status: Acute Assessment and plan: A: IUPC indicates adequate contraction pattern with MVU's 180-220 Category 2 tracing d/t recurrent early/variable decels, variability remains moderate Progress into active labor and transition phase Effective epidural anesthesia P: Positioning to encourage rotation and descent Reassess progress as needed, close observation of FHT pattern Hold pitocin @ current level Encouraged to anticipate Objective Objective Narrative Objective Narrative: Pt reported feeling pelvic pressure, RN exam 8 cm, vtx @ 0 Category 2 tracing: recurrent periodic early or variable decels, starting after epidural induction Moderate variability has persisted, baseline stable at 145-150 Pitocin at 14 u/min Subjective Interval history since last seen: Epidural effective, pt comfortable, slept 2 hrs, feeling pelvic pressure.
[2024-02-08] MEDS: Lactated Ringers 1,000 ML 125 ML IV (07:22)
--- NOTE | 2024-02-08 07:27 | W.OBCONSULT ---
Date of service: 02/08/24 Time of Service: 07:28 Assessment and Plan Assessment and plan (1) Arrest of descent, delivered, current hospitalization: Status: Acute (2) Abnormal labor: Status: Acute Assessment and plan: Preop counseling: She was informed of the risks of procedure including risk of damage to bowel, bladder, and blood vessels during the time of the delivery. If any of those injuries were to occur she may require a repair at the time of surgery or blood transfusion or possible hysterectomy. I reviewed the risk of infection and the administration of IV Abx prior to the surgery. She wishes to proceed with delivery. History of Present Illness History of Present Illness Chief Complaint: arrest of descent Narrative: 28 yo female admitted 02/06/24 @ 41+3 wks, EGA for postdates IOL. course unremarkable. IVF . DAYAN @ 41 wks = 10, Alvarez score is 5. Valcyclovir for HSV prophylaxis. Received Misoprostol for cervical ripening. Oxytocin augmentation of labor followed by AROM @ ~1930 02/07/24 when cervix 5cm dilated. Light meconium noted. Pt received epidural at 8cm and Oxytocin titrated to appropriate [place] units. No cervical change overnight and pt advised to have pLTCS. FHR tracing Category 1 with exception of one episode of tachycardia that resolved with Oxytocin infusion temporarily decreased. Consults Consult date: 02/08/24 Requesting physician: Mary Arevalo Review of Systems All systems reviewed & are unremarkable except as noted in HPI and below PFSH All Active Problems (Updated 02/08/24 @ 07:45 by Mary Arevalo MD) Abnormal labor (Acute) Arrest of descent, delivered, current hospitalization (Acute) Encounter for induction of labor (Acute) 41 weeks gestation of (Acute) Penicillin-induced allergic rash (Acute) In childhood, no recent exposure History of herpes genitalis (Acute) (Acute) resulting from in-vitro fertilization (Acute) fresh embryo transfer 05/11/23 Medical History (Updated 02/08/24 @ 07:45 by Mary Arevalo MD) Family history of hypertension both of pt's parents and her brother Infertility, female Recurrent loss, currently History of hysterosalpingogram 03/2023 Breakthrough bleeding (09/15/15) Family History Mother Vulvar cancer Father Heart disease Grandfather Diabetes MGF Social History Smoking/Tobacco Use Status: Never Smoking risk assessment performed?: Yes Alcohol Intake: never Substance use type: does not use Housing: house Do you feel safe at home: Yes Do you feel safe in your relationship?: Yes History History 4 Para 0 Hx # Term Pregnancies 0 Multiple births 0 Hx # Pregnancies 0 Ectopic pregnancies 0 AB induced 1 Hx Number of Living Children 0 AB spontaneous 2 Exam Const General: no acute distress Nutritional Appearance: well nourished Orientation: alert, awake and oriented x3 Neck Neck: normal visual inspection Resp Effort & Inspection: normal respiratory effort Auscultation: clear to auscultation bilaterally Cardio Rate: regular rate Rhythm: regular rhythm GI Inspection: normal to inspection (gravid) General: other (SVE performed by CNM) Back/Spine/Pelvis Other: epidural catheter in place. Skin General skin exam: no rashes or lesions noted Extrem General: normal to inspection Psych Appearance: grossly normal Mental Status: mental status grossly normal and other (pt is weary and verbalizing that she wants to proceed with deliver) Speech and Movement: speech and movement normal Mood: other (pt is weary and verbalizing that she wants to proceed with deliver) Results Last Vital Signs Temp 98.6 F 02/08/24 07:24 Pulse 141 H 02/08/24 07:26 Resp 16 02/08/24 07:24 BP 107/55 L 02/08/24 07:24 Pulse Ox 97 02/08/24 07:24 Labs 02/06/24 08:35
[2024-02-08] MEDS: AZITHROMYCIN 500 MG in Normal Saline 250 ML 250 MG IVPB (07:37)
[2024-02-08] MEDS: ceFAZolin 2 GM/50 ML BAG IVPB (08:35)
[2024-02-08] MEDS: Bupivacaine 0.25% Pres-Free 30 ML VIAL (09:07)
--- NOTE | 2024-02-08 09:17 | PDOC.OPNB_ITS ---
Date of service: 02/08/24 Time of Service: 09:17 Operative Note Operative Note Delivery Method: Unscheduled STAT: No and Primary NTSV>37 Weeks: Yes DATE OF PROCEDURE: 02/08/24 PRE-OP DIAGNOSES: Abnormal labor progress, arrest of dilation, arrest of descent. POST-OP DIAGNOSES: same PROCEDURE: primary low transverse delivery SURGEON: Mary Arevalo Assisting Surgeon: Angelita Forman Anesthesia: spinal Estimated blood loss (mL): 300 Pathology: other (cord blood to lab) Complications: None Patient was transported to: floor Patient's condition: stable Indications: 28 yo female admitted at 41w3d EGA who underwent cervical ripening, Oxytocin augmentation of labor and acheived maximum cervical dilation of 8cm without descent of vertex from -1 station. Category 1 tracing during labor. Findings: Viable female in the vertex presentation. Meconium stained amniotic fluid. Apgars 8/9 . Weight: [id number] . Filmy serosal adhesions over both adnexa. Fallopian tubes and ovaries. normal in appearance. Serosal surface of uterine fundus has remnant of endometriosis adhesions. 2cm pedunculated fibroid on posterior surface of uterus. Procedure Description: Patient was taken to the operating room she is placed in the sitting position and the epidural catheter removed and spinal anesthesia was administered without difficulty. She was then placed in the dorsal supine position with a leftward tilt. SCDs were placed and a Mejias catheter to gravity drainage had been placed in Center. A vaginal prep with Betadine was performed and the patient was prepped and draped in the usual sterile fashion. Surgical timeout was performed. Preop antibiotics were administered. After a adequate level of anesthesia was achieved a Pfannenstiel skin incision was made approximately 2 cm superior to the pubic symphysis using a scalpel and the underlying subcutaneous tissue dissected using Bovie electrocautery to the level of the rectus fascia. The rectus fascia was then nicked in the midline and the fascial incision extended laterally using Bovie electrocautery. 2 Mariela clamps were applied to the superior rectus fascia and the rectus fascia was dissected off of the underlying rectus muscles using Bovie electrocautery and blunt technique. A similar technique was carried out on the inferior rectus fascia. Rectus muscles were then in the midline and the peritoneum entered bluntly. The peritoneal incision was extended laterally using blunt technique. The vesicle-uterine peritoneum over lower uterine segment was incised with curved Amaya scissors and the bladder flap created bluntly. Scalpel was used to incise the lower uterine segment in a transverse fashion. The uterine incision was extended bluntly and the amniotic sac was ruptured with meconium stained amniotic fluid noted. A single gloved hand was placed into the uterine cavity and the head was successfully delivered through the uterine incision followed by the trunk and extremities with the assistance of fundal pressure. The cord was doubly clamped and cut and the infant handed off to the waiting pediatric team. A segment of umbilical cord was obtained, cord blood was obtained and the placenta was extracted with a combination of fundal massage and gentle cord traction. The uterus was exteriorized cleared of all clots and debris and the uterine incision reapproximated with a running lock suture of 0 Vicryl followed by a second imbricating suture of 0 Vicryl. Uterine incision was noted be hemostatic. The uterus was returned to the abdomen and the paracolic gutters cleared of all clots and debris. Uterine incision and the along with the bladder flap and the abdominal wall were all inspected and noted to be hemostatic. The rectus fascia was reapproximated with a running suture of 0 Vicryl. space within the subcutaneous tissue closed with a running suture of 2-0 Vicryl. The skin incision was reapproximated with a subcuticular closure of 4-0 Vicryl. Steri strips and a Mepilex dressing was applied. The uterus was massaged for any remaining clots and debris. The patient was transported to recovery area in stable condition. All sponge, lap, and needle counts correct x2. [place] Gender: Female See Nursing Delivery Note for weight and Scores: Her parents intend to name her Nereyda You.
[2024-02-08] MEDS: Ketorolac 30 MG/ML VIAL IVP ×2 (11:29→19:53)
[2024-02-08] MEDS: Normal Saline Flush 10 ML SYR IVP ×2 (11:30→19:53)
[2024-02-09] VITALS (7 sets, daily range): BP systolic 98–116; BP diastolic 38–69; PULSE 70–88; RESP 16–18; TEMP 36.4–36.7; O2SAT 97–99
[2024-02-09] MEDS: Ketorolac 30 MG/ML VIAL IVP ×2 (02:22→08:23)
[2024-02-09 06:43] LABS: Abs Immature Grans 0.09 10^3/uL (0.0-0.06); Absolute Eosinophil Count 0.16 10^3/uL (0.0-0.7); Absolute Lymphocyte Count 2.21 10^3/uL (1.2-3.4); Absolute Monocyte Count 1.01 10^3/uL (0.1-0.8); Basophils % 0.2 %; Eosinophils % 1.2 %; HCT 29.8 % (36.0-46.0); HGB 9.8 g/dL (11.2-15.7); Immature Grans % 0.7 %; MCH 29.8 pg (27.0-33.0); MCHC 32.9 % (32.0-36.0); MCV 91 fL (80-95); MPV 9.8 fL (8.0-11.0); Monocytes % 7.8 %; Neutrophils % 73.1 %; Platelet Count 221 10^3/uL (130-400); RBC 3.29 10^6/uL (3.93-5.22); RDW 14.6 % (11.7-14.6); WBC 12.99 10^3/uL (4.4-10.8)
[2024-02-09 06:51] LABS: Absolute Basophil Count 0.03 10^3/uL (0.0-0.2)
[2024-02-09] MEDS: Normal Saline Flush 10 ML SYR IVP (08:24)
[2024-02-09] MEDS: Docusate Sodium 100 MG CAP PO (09:10)
--- NOTE | 2024-02-09 09:41 | W.PM.OBPNV1 ---
Date of service: 02/09/24 Time of Service: 09:47 Assessment and Plan Assessment and plan (1) resulting from in-vitro fertilization: Status: Acute (2) Arrest of descent, delivered, current hospitalization: Status: Acute (3) Abnormal labor: Status: Acute (4) Status post primary low transverse section: Status: Acute Assessment and plan: Patient's postoperative day #1 status post primary low-transverse section for failed induction, abnormal labor, macrosomia with a female . Doing well postoperatively. Hemoglobin stable. Vital signs are stable. Will ambulate, increase activity and diet today. Work on breast-feeding. Anticipate discharge in 24 to 48 hours based on maternal and Subjective Subjective Interval history: Patient seen and doing well this morning. Pain is well-controlled. She has been working on breast-feeding. All questions were answered today. [place] baby status: Doing well, Rooming in and Strong Bonding Observed Exam Physical Exam Vital signs: Temp Pulse Resp BP Pulse Ox 98.1 F 76 18 107/69 97 02/09/24 00:00 02/09/24 03:24 02/09/24 03:24 02/09/24 03:24 02/09/24 00:00 Vital Signs Reviewed: Yes Constitutional Constitutional: no acute distress HEENT Exam HEENT Exam: Normal Respiratory Exam Respiratory Exam: Normal Cardiovascular Exam Cardiovascular Exam: Normal Abdominal Exam Abdomen: Tender Comments: Incision is dressed Fundal Exam Fundus: Below Umbilicus and Firm Extremities Exam Extremity Exam: Edema; negative Calf Tenderness Neurological Exam Neurological Exam: Normal Psychiatric Exam Psychiatric Exam: Normal Results Hemoglobin/Hematocrit: Hgb 9.8 g/dL (11.2-15.7) L D 02/09/24 06:15 Hct 29.8 % (36.0-46.0) L 02/09/24 06:15 Abnormal Lab Findings: Abnormal Labs 02/09/24 06:15 WBC 12.99 H RBC 3.29 L Hgb 9.8 L D Hct 29.8 L Absolute Neutrophils 9.50 H Absolute Monocytes 1.01 H
--- NOTE | 2024-02-09 09:42 | W.ANESPOSTOP ---
Postoperative Evaluation Date, Time and Location Date Performed: 02/09/24 Time Performed: 09:30 Patient Location: Obstetrics Vital Signs Most Recent Imported Vital Signs: Most Recent Vital Signs Temp Pulse Resp BP Pulse Ox 36.7 C 76 18 107/69 97 02/09/24 00:00 02/09/24 03:24 02/09/24 03:24 02/09/24 03:24 02/09/24 00:00 Pain Score Most Recent Pain Score: Most Recent Pain Score Pain Level [Abdomen] 2 02/08/24 20:00 Pain Level 2 02/09/24 08:23 Assessment Mental Status: Awake (Alert & Oriented to Patient Baseline) Airway and Respiratory Function: Patent airway with normal (patient baseline) respiratory exam Cardiovascular Function: Hemodynamically Stable Hydration Status: Adequately Hydrated Nausea & Vomiting: No Nausea or Vomiting Pain: Pain is tolerable per patient Peripheral Nerve Block: Patient did not receive a nerve block Teaching Patient Teaching: Discussed Safe Use of Pain Medication Given Recent Anesthesia Postoperative Comments:: Miss Akers is evaluated s/p epidural, then intrathecal for . She is in good spirits nursing her daughter. She endorses overall satisfaction with both the epidural and intrathecal anesthetic. She denies N/V, pain is tolerable, she is tolerating PO nutrition, is hemodynamically stable, and respiratory status is to baseline, denies is in no acute distress. All questions were sought and answered.
[2024-02-09] MEDS: Acetaminophen 325 MG TAB 650 MG PO ×2 (13:28→21:42)
[2024-02-09] MEDS: Ibuprofen 600 MG TAB PO ×2 (15:48→21:43)
[2024-02-10] MEDS: Ibuprofen 600 MG TAB PO (04:57)
[2024-02-10] MEDS: Acetaminophen 325 MG TAB 650 MG PO (04:57)
[2024-02-10 08:00] VITALS: BP 112/70; PULSE 86; RESP 98; TEMP 36.8
--- NOTE | 2024-02-10 09:16 | DSE_ITS ---
Date of service: 02/10/24 Time of Service: 09:16 DS: Diagnosis Discharge Diagnosis (1) resulting from in-vitro fertilization: Status: Acute (2) Arrest of descent, delivered, current hospitalization: Status: Acute (3) Abnormal labor: Status: Acute (4) Status post primary low transverse section: Status: Acute Discharge Plan Disposition Patient Disposition: Home Condition: Improving Discharge Details Reason For Visit: Postdates induction Admit Date/Time: 02/06/24 08:06 Admit Provider: Zeina Anders Attending Provider: Zeina Anders Primary Care Provider: Unknown,Unknown Hospital Course Hospital Course: 8 yo female admitted 02/06/24 @ 41+3 wks, EGA for postdates IOL. course unremarkable. IVF . DAYAN @ 41 wks = 10, Alvarez score is 5. Va lcyclovir for HSV prophylaxis. Received Misoprostol for cervical ripening. Oxytocin augmentation of labor followed by AROM @ ~1930 02/07/24 when cervix 5cm dilated. Light meconium noted. Pt received epidural at 8cm and Oxytocin titrated to appropriate [place] units. No cervical change overnight and pt advised to have pLTCS. FHR tracing Category 1 with exception of one episode of tachycardia that resolved with Oxytocin infusion temporarily decreased. pLTCS w/o complications. Pt discharged to home on PPD2 successfully breast feeding. Will f/u in one week with MD for incision inspection. Acetaminophen and Ibuprofen for pain. Home Meds and New Rx's Prescriptions: No Action PNV #[id number] 30 mg iron-10 mg iron-1 mg capsule 1 cap PO DAILY aspirin 81 mg tablet,delayed release (DR/EC) 81 mg PO DAILY Qty: 90 4RF valacyclovir [Valtrex] 1 gram tablet 1,000 mg PO DAILY Qty: 30 2RF Discharge Instructions Stand Alone Forms: BC Discharge Instruc, BC Post Vaginal Deliver Activity:: Activity as Tolerated Equipment/Supplies:: No Equipment Needed Diet:: As Tolerated OB:DS Summary Summary Episiotomy Description: None Contraception Discussed Contraception Discussed: Yes (Progestin only while . Hx of IVF) Contraceptive Plan: Control Pill/Patch, Infant Gender-Baby A: Female weight: 10 lb 14.43 oz Status at Discharge Functional status at discharge: independent ambulation Overall status at discharge: patient is progressing back to baseline Mental Status: mental status grossly normal Speech and Movement: speech and movement normal Mood: congruent mood Affect: normal affect Quality:SDOH Health Related Social Needs: No Data to Display Exam Physical Exam Vital signs: Temp Pulse Resp BP Pulse Ox 98 F 70 18 114/59 L 99 02/09/24 20:00 02/09/24 20:00 02/09/24 20:00 02/09/24 20:00 02/09/24 15:50 Vital Signs Reviewed: Yes Constitutional Constitutional: no acute distress HEENT Exam HEENT Exam: Normal Neck Exam Neck Exam: Normal Respiratory Exam Respiratory Exam: Normal Cardiovascular Exam Cardiovascular Exam: Normal Fundal Exam Fundus: Below Umbilicus and Firm Rectal Exam Rectal Exam: Not Done Extremities Exam Extremity Exam: Normal Back/Spine/Pelvis Exam Back Exam: Normal Neurological Exam Neurological Exam: Normal Psychiatric Exam Psychiatric Exam: Normal [facility] All Active Problems (Updated 02/08/24 @ 07:45 by Mary Arevalo MD) Status post primary low transverse section (Acute) Abnormal labor. Failed induction. Macrosomia. Female Nereyda C- section 02/08/2024. Abnormal labor (Acute) Arrest of descent, delivered, current hospitalization (Acute) Encounter for induction of labor (Acute) 41 weeks gestation of (Acute) Penicillin-induced allergic rash (Acute) In childhood, no recent exposure History of herpes genitalis (Acute) (Acute) resulting from in-vitro fertilization (Acute) fresh embryo transfer 05/11/23 Medical History (Updated 02/08/24 @ 07:45 by Mary Arevalo MD) Family history of hypertension both of pt's parents and her brother Infertility, female Recurrent loss, currently History of hysterosalpingogram 03/2023 Breakthrough bleeding (09/15/15) Family History Mother Vulvar cancer Father Heart disease Grandfather Diabetes MGF Social History Smoking/Tobacco Use Status: Never Smoking risk assessment performed?: Yes Alcohol Intake: never Substance use type: does not use Housing: house Do you feel safe at home: Yes Do you feel safe in your relationship?: Yes History History 4 Para 0 Hx # Term Pregnancies 0 Multiple births 0 Hx # Pregnancies 0 Ectopic pregnancies 0 AB induced 1 Hx Number of Living Children 0 AB spontaneous 2 Past Pregnancies Del. Date GA/Weeks # Preg Succ Route Wgt Sex Labor Lgth Anesth esia Location Prov Complic 02/08/24 41 No Yes Female Delivery Date: 02/08/24 Last Updated by: Mary Arevalo MD IOL,arrest of dilation. Nereyda You DS: Data Vitals/I&O Vitals and I&O: Vital Signs Temperature 98 F 02/09/24 20:00 Temperature Source Oral 02/09/24 20:00 Pulse 70 02/09/24 20:00 Pulse Rhythm Regular 02/09/24 08:50 Respiratory Rate 18 02/09/24 20:00 Respiratory Depth Normal 02/07/24 07:20 Blood Pressure 114/59 L 02/09/24 20:00 Blood Pressure Mean 77 02/09/24 20:00 Pulse Oximetry 99 02/09/24 15:50 Oxygen Delivery Method Room Air 02/06/24 08:47 Oxygen Flow Rate 0 02/06/24 08:47 Pain Level 4 02/09/24 15:50 Comment 97 02/08/24 20:00 Intake & Output 02/09/24 02/09/24 02/10/24 11:59 23:59 11:59 Output Total 300 / 1150 850 / 1150 Balance -300 / -1150 -850 / -1150 Output: Urine 300 / 1150 850 / 1150 Other: Urine Color Straw Straw Urine Appearance Clear Clear Urine Odor None None Voiding Methods Toilet
== END 2024-02-10 12:00 | disposition home or self-care (01) | DRG 787 ==
PROVIDERS: Obstetrics & Gynecology Gynecology; Admitting Provider Advanced Practice Midwife; Visit Provider Advanced Practice Midwife
PROC: 10D00Z1 Extraction of Products of Conception, Low, Open Approach (ICD-10-PCS; CPT 59514; principal; 2024-02-08 08:00)
DX: O48.0 Post-term pregnancy (principal); O98.32 Other infections with a predominantly sexual mode of transmission complicating childbirth; Z3A.41 41 weeks gestation of pregnancy; O62.1 Secondary uterine inertia; Z37.0 Single live birth; A60.00 Herpesviral infection of urogenital system, unspecified; O77.0 Labor and delivery complicated by meconium in amniotic fluid; O61.1 Failed instrumental induction of labor; O36.63X0 Maternal care for excessive fetal growth, third trimester, not applicable or unspecified
CPT/HCPCS: 59514; 59200; 36415; 85027; 86850; 86900; 86901; 85025; J0456; J0665; J0690; J1100; J1885; J2274; J2371; J2405; J3010; J3490

== ENCOUNTER 2025-01-18 03:57 | Outpatient (CLI) | payer MEDICAID, SELFPAY ==
[2025-01-18 15:31] LABS: Abs Immature Grans 0.04 10^3/uL (0.0-0.06); HCT 38.8 % (36.0-46.0); HGB 13.2 g/dL (11.2-15.7); Immature Grans % 0.6 %; MCH 30.2 pg (27.0-33.0); MCHC 34.0 % (32.0-36.0); MCV 89 fL (80-95); MPV 9.6 fL (8.0-11.0); Platelet Count 227 10^3/uL (130-400); RBC 4.37 10^6/uL (3.93-5.22); RDW 12.6 % (11.7-14.6); RDW-SD 41.3 fL; WBC 7.27 10^3/uL (4.4-10.8)
[2025-01-18 16:28] LABS: Hemoglobin A1C 5.2 % (<5.7)
[2025-01-18 23:44] LABS: HIV-1/2 Ag & Ab Screen Negative (Negative)
[2025-01-18 23:49] LABS: Hepatitis C Ab w Rflx HCV PCR Negative (Negative)
[2025-01-21 13:24] LABS: Rubella IgG Ab (UVM) Positive (See Note)
[2025-01-22 14:33] LABS: Syphilis IgG w/Reflex Nonreactive (Nonreactive)
== END 2025-01-18 03:58 | disposition home or self-care (01) ==
LOC: LBO 03:58
PROVIDERS: Visit Provider Advanced Practice Midwife
DX: O09.292 Supervision of pregnancy with other poor reproductive or obstetric history, second trimester; Z3A.12 12 weeks gestation of pregnancy
CPT/HCPCS: 36415; 86787; 86803; 86850; 86900; 86901; 87340; 87389; 83036; 85025; 86762; 86780

== ENCOUNTER 2025-01-18 14:06 | Outpatient (REF) | payer MEDICAID, SELFPAY ==
[2025-01-21 12:31] LABS: Chlamydia Result Negative (Negative); GC Result Negative (Negative)
== END 2025-01-18 14:07 | disposition home or self-care (01) ==
LOC: LBN 14:06
PROVIDERS: Visit Provider Advanced Practice Midwife
DX: Z34.92 Encounter for supervision of normal pregnancy, unspecified, second trimester (principal); Z3A.12 12 weeks gestation of pregnancy
CPT/HCPCS: 87491; 87591; 87086

== ENCOUNTER 2025-02-15 03:21 | Outpatient (CLI) | payer MEDICAID, SELFPAY ==
[2025-02-22 14:41] LABS: AFP 35.1 ng/mL; Prev Pregnancy w/NTD No; RECOMMENDED FOLLOW UP None.
== END 2025-02-15 03:22 | disposition home or self-care (01) ==
LOC: LBO 03:22
PROVIDERS: Visit Provider Advanced Practice Midwife
DX: Z34.91 Encounter for supervision of normal pregnancy, unspecified, first trimester (principal)
CPT/HCPCS: 36415; 82105

== ENCOUNTER → 2025-03-20 00:34 | Outpatient (CLI) | payer MEDICAID, SELFPAY ==
--- NOTE | 2025-03-20 07:30 | DI.US_ITS ---
Exam(s) US OB 2-3 TRIMESTER EXAM: US OB 2-3 TRIMESTER CLINICAL HISTORY: ,Z34.90. TECHNIQUE: Transabdominal obstetrical ultrasound performed. COMPARISON: US US OB F/U FACIAL/LVOT/RVOT from 09/13/2023 US POCUS EXAM from 12/27/2024 FINDINGS: Number of fetuses: 1 position: BREECH heart rate: 152bpm Placental location: There is a grade 1 posterior placenta. The placental tip is 3 cm from the internal os. No evidence of previa. Amniotic fluid index: Amount of fluid is within normal limits. ANATOMICAL SURVEY: Within normal limits. BIOMETRIC DATA: BPD: 4.68cm, 20weeks 1day HC: 18.38cm, 20weeks 5days AC: 15.84cm, 21weeks FL: 3.46cm, 20weeks 6days Cisterna magna: 3.3mm Cerebellum: 2.04cm Lateral ventricle: 0.5 cm. EFW: 384.2g, 0.84lb, 63.1% Composite Age: 20weeks 5days INDIGO: 08/02/2025 Heart Rate: 152bpm ANATOMICAL SURVEY: Four-chambered heart: Unremarkable. Note is made of a solitary echogenic focus measuring less than 3 mm within the left ventricle. RVOT: Unremarkable. LVOT: Unremarkable. Left-sided stomach: Unremarkable. urinary bladder: Unremarkable. Bilateral kidneys: Unremarkable. Three-vessel cord: Unremarkable. Cord insertion: Unremarkable. Posterior fossa: Unremarkable. ventricles: Unremarkable. nose/lips: Unremarkable. Palate: Unremarkable. spine: Unremarkable. Two arms and two legs: Unremarkable. IMPRESSION: 1. Single live intrauterine gestation as above. 2. 3 mm solitary echogenic intracardiac focus in the left ventricle. Follow-up as clinically indicated based on the patient's risk factors. 3. Otherwise unremarkable anatomic survey. Unexpected findings DATA REPOSITORY:
== END ==
LOC: DI 00:35
PROVIDERS: Visit Provider Advanced Practice Midwife
DX: Z3A.34 34 weeks gestation of pregnancy (principal); Z34.83 Encounter for supervision of other normal pregnancy, third trimester
CPT/HCPCS: 76805